=== PATIENT | female | born 1985 ===

== ENCOUNTER 2020-09-25 06:08 | Inpatient (IN) ==
[2020-09-25] MEDS ORDERED: MEPERIDINE 50 MG/1 ML VIAL IV PRN (07:38)
[2020-09-25] MEDS ORDERED: ONDANSETRON 4 MG/2 ML VIAL IV PRN (07:38)
[2020-09-25] MEDS ORDERED: BUTORPHANOL 2 MG/ML VIAL IV PRN (07:38)
[2020-09-25] MEDS ORDERED: OXYTOCIN/LR 20 UNIT/1,000 ML BAG IV SCH (08:00)
[2020-09-25 08:15] LABS: Basophils % 0.2 % (0.0-0.8); Eosinophils % 0.2 % (0.00-10.9); Hematocrit 37.3 VOL% (35.7-47.0); Hemoglobin 12.7 GM/DL (12.0-16.0); Immature Granulocytes % 0.9 %; Immature Granulocytes Absolute 0.07 #; Lymphocytes % 25.3 % (21.3-54.2); Mean Corpuscular Volume 90.5 FL (87-102); Mean Platelet Volume 12.1 FL (9.6-12.0); Monocytes % 11.7 % (1.7-12.7); Neutrophils % 61.7 % (38.7-73.9); Platelet Count 154 T/CUMM (130-400); Red Blood Count 4.12 MC/CUMM (3.8-5.5); Red Cell Distribution Width 13.6 % (9.3-17.3)
[2020-09-25] MEDS: LACTATED RINGERS 1,000 ML IV SCH ×2 (08:34→13:42)
[2020-09-25] MEDS ORDERED: LACTATED RINGERS 250 ML IV PRN (09:27)
[2020-09-25] MEDS ORDERED: ePHEDrine 50 MG/ML VIAL IV PRN (09:27)
[2020-09-25] MEDS ORDERED: ONDANSETRON 4 MG/2 ML VIAL IV ONE (09:27)
[2020-09-25] MEDS ORDERED: NALOXONE 0.4 MG/ML VIAL IV PRN (09:27)
[2020-09-25] MEDS ORDERED: LACTATED RINGERS 1,000 ML IV ONE (09:27)
[2020-09-25] MEDS ORDERED: PROMETHAZINE 25 MG/1 ML VIAL IM ONE (09:27)
[2020-09-25] MEDS ORDERED: CITRIC ACID/SODIUM CITRATE 30 ML UDCUP PO ONE (09:27)
[2020-09-25] MEDS ORDERED: diphenhydrAMINE 50 MG/1 ML VIAL IV PRN ×2 (09:27)
[2020-09-25] MEDS ORDERED: hydrOXYzine HCL 25 MG/1 ML VIAL IM PRN (09:27)
[2020-09-25] MEDS ORDERED: FAMOTIDINE 20 MG/2 ML VIAL IV ONE (09:27)
[2020-09-25] MEDS ORDERED: fentaNYL 2 MCG/ROPIV 0.2% EPID 100 ML EPIDURAL SCH (09:30)
[2020-09-25 15:37] LABS: Bilirubin,Urine Negative (Negative); Blood, Urine Negative (Negative); Glucose,Urine (UA) Negative (Negative); Ketones,Urine 20 mg/dL (Negative); Mucus,Urine Occasional /LPF (Occasional); Nitrite,Urine Negative (Negative); Protein,Urine Negative; RBC,Urine <1 /HPF (0-4); Urine Appearance CLEAR (Clear); Urine Color Yellow (Yellow); Urine Specific Gravity 1.013 (1.001-1.035); Urine Urobilinogen < 2.0 EU/DL (0.2-1.0); WBC,Urine <1 /HPF (0-6)
[2020-09-25] MEDS ORDERED: METHYLERGONOVINE 0.2 MG/1 ML AMP ONE (17:30)
[2020-09-25] MEDS ORDERED: OXYTOCIN/LR 0 UNIT/0 ML BAG IV ONE (17:30)
[2020-09-25] MEDS ORDERED: TRANEXAMIC ACID 1,000 MG/10 ML VIAL ONE (17:30)
[2020-09-25] MEDS ORDERED: miSOPROStoL 200 MCG TABLET ONE (17:30)
[2020-09-25] MEDS ORDERED: CARBOPROST TROMETHAMINE 250 MCG/ML AMP IM ONE (17:31)
[2020-09-25 18:49] LABS: Cord Venous Blood HCO3 20.2 MMOL/L; Cord Venous Blood PCO2 47.2 MMHG; Cord Venous Blood PO2 26.5
[2020-09-25] MEDS ORDERED: BISACODYL 10 MG SUPP RECTAL PRN (19:04)
[2020-09-25] MEDS ORDERED: WITCH HAZEL PADS 100/JAR TOP PRN (19:04)
[2020-09-25] MEDS ORDERED: ACETAMINOPHEN 325 MG TABLET PO PRN (19:04)
[2020-09-25] MEDS ORDERED: RHO(D) IMMUNE GLOBULIN 300 MCG SYRINGE IM ONE (19:04)
[2020-09-25] MEDS ORDERED: MEASLES/MUMPS/RUBELLA VACCINE 0.5 ML VIAL SUBCUT ONE (19:04)
[2020-09-25] MEDS ORDERED: HYDROCORTISONE 2.5% RECTAL CREAM 30 GM TUBE TOP PRN (19:04)
[2020-09-25] MEDS ORDERED: BENZOCAINE 20%/MENTHOL 0.5% SPRAY 56 GM CAN TOP PRN (19:04)
[2020-09-25] MEDS ORDERED: DIPH/TET/ACEL PERT BOOSTER VACCINE 0.5 ML VIAL IM ONE (19:04)
[2020-09-25] MEDS ORDERED: ACETAMINOPHEN 500 MG TABLET PO ONE (19:04)
[2020-09-25] MEDS ORDERED: LANOLIN 50% CREAM 0.3 OZ TUBE TOP PRN (19:04)
[2020-09-25] MEDS ORDERED: ACETAMINOPHEN/CODEINE 300-30 MG TABLET PO PRN (19:06)
[2020-09-25] MEDS ORDERED: OXYTOCIN/LR 20 UNIT/1,000 ML BAG IV ONE (21:22)
[2020-09-25] MEDS: IBUPROFEN 800 MG TABLET PO PRN (23:24)
[2020-09-25] MEDS: DOCUSATE SODIUM 100 MG CAPSULE PO SCH (23:24)
[2020-09-26] MEDS: IBUPROFEN 800 MG TABLET PO PRN ×3 (05:57→19:20)
[2020-09-26 06:44] LABS: Basophils # 0.1 10*3/uL (0.0-0.2); Basophils % 0.3 % (0.0-0.8); Eosinophils # 0.1 10*3/uL (0.0-0.87); Eosinophils % 0.5 % (0.00-10.9); Hematocrit 32.5 VOL% (35.7-47.0); Immature Granulocytes % 0.7 %; Lymphocytes # 2.9 10*3/uL (1.4-4.0); Mean Corpuscular HGB Conc 33.8 GM/DL (32-36); Mean Corpuscular Volume 90.5 FL (87-102); Mean Platelet Volume 11.8 FL (9.6-12.0); Monocytes % 10.1 % (1.7-12.7); Neutrophils % 69.4 % (38.7-73.9); Platelet Count 129 T/CUMM (130-400); Red Blood Count 3.59 MC/CUMM (3.8-5.5); Red Cell Distribution Width 13.8 % (9.3-17.3); White Blood Count 15.1 T/CUMM (4-12)
[2020-09-26] MEDS: DOCUSATE SODIUM 100 MG CAPSULE PO SCH ×2 (08:47→20:20)
[2020-09-26] MEDS ORDERED: MULTIVITAMIN (PRENATAL) TABLET PO SCH (09:00)
[2020-09-27] MEDS: IBUPROFEN 800 MG TABLET PO PRN ×2 (02:10→08:17)
[2020-09-27 07:28] VITALS: BP 96/64
== END 2020-09-27 11:45 | disposition home or self-care (01) | DRG 807 ==
LOC: N.LDOUT 06:08 → N.LD 06:09 → N.OB 21:55
PROVIDERS: ADMIT Obstetrics & Gynecology; ATTEND Obstetrics & Gynecology